=== PATIENT | male | born 1980 | race Caucasian/White ===

== ENCOUNTER 2019-11-13 14:37 | Emergency (ER) | payer OTHER ==
[~2019-11-13] VITALS: Ht 175.3 cm; Wt 72.7 kg
[~2019-11-13 14:37] MED LIST: CIME400T PO
[2019-11-13] MEDS ORDERED: KETOROLAC TROMETHAMINE 30 MG/ML VIAL IM ONE (16:45)
[2019-11-13 18:07] VITALS: BP 126/76
== END 2019-11-13 18:10 | disposition home or self-care (01) ==
LOC: EMS 14:43
DX: R51 Headache (principal); R42 Dizziness and giddiness; Z20.828 Contact with and (suspected) exposure to other viral communicable diseases
CPT/HCPCS: 87635; 96372; 99283; J1885